=== PATIENT | female | born 1940 | race Caucasian/White ===

== ENCOUNTER 2019-10-05 20:49 | Emergency (ER) | payer MEDICARE, MEDICAID ==
[~2019-10-05] VITALS: Ht 152.4 cm; Wt 54.4 kg
--- NOTE | 2019-10-05 21:01 | NUR ---
ED Nurse Note: pt presents to ED after tripping and falling at home an hour [employer]. pt reports trying to get into a chair and falling. pt has a 2 cm lac above her L eyebrown and cannot move her L arm. pt reports 08/17 shoulder pain that radiates down the arm to the elbow. pt denies being on any blood thinners or ASA Addendum: 10/05/19 at 2158 by ADAN ED Nurse Note: pt does take ASA everyday
--- NOTE | 2019-10-05 21:07 | Emergency Room Report ---
History of Present Illness General Chief Complaint: Multiple Trauma/Fall Source: Patient Present Illness HPI Is a 78-year-old female with no significant past medical history. She presents with chief complaint of head injury and left shoulder pain. Onset was just prior to arrival. She got up from the chair and missed a step and fell forward. She hit her head. Sustained a laceration to the left eyebrow. Also landed on her left shoulder. Now she cannot move her left shoulder. It is painful. Pain is 9 out of 10. No nausea no vomiting. No fever chills. Denies any other injury. Did not pass out. Not on anticoagulation. Allergies: Coded Allergies: PENICILLINS (Unverified Allergy, Unknown, 10/05/19) Uncoded Allergies: PENICILLIN (Allergy, Unknown, 10/05/19) Patient History Past Medical History: see triage record, old chart reviewed Past Surgical History: none Pertinent Family History: none Social History: Denies: smoking Last Menstrual Period: NA Now: No : 3 Para: 3 Immunizations: other Reviewed Nursing Documentation: PMH: Agreed; PSxH: Agreed Nursing Documentation-PMH Past Medical History: No History, Except For Review of Systems Eye: Denies: eye pain, blurred vision ENT: Denies: ear pain, nose congestion, throat swelling Respiratory: Denies: cough, shortness of breath Cardiovascular: Denies: chest pain, palpitations Gastrointestinal: Denies: abdominal pain, diarrhea, nausea, vomiting Musculoskeletal: Reports: joint pain; Denies: back pain Skin: Denies: rash Neurological: Denies: headache, numbness Endocrine: Denies: increased thirst, increased urine Hematologic/Lymphatic: Denies: easy bruising All Other Systems: negative except mentioned in HPI Physical Exam Vital Signs Date Time Temp Pulse Resp B/P (MAP) Pulse Ox O2 Delivery O2 Flow Rate FiO2 10/05/19 20:53 98.2 82 19 178/84 (115) 98 Room Air Vitals with high blood pressure Sp02 EP Interpretation: reviewed, normal General Appearance: well appearing, no apparent distress, alert Head: normocephalic, other - 2cm laceration to the left lateral eyebrow. No foreign body. Eyes: bilateral eye PERRL, bilateral eye EOMI ENT: hearing grossly normal, normal pharynx Neck: full range of motion, supple, no meningismus Respiratory: chest non-tender, lungs clear, normal breath sounds Cardiovascular #1: regular rate, rhythm, no murmur Gastrointestinal: normal bowel sounds, non tender, no mass, no organomegaly, no bruit, non-distended Musculoskeletal: back normal, gait/station normal, other - Diffuse tenderness to the proximal left humerus/shoulder area. Sensation normal. Decreased range of motion secondary to pain. Psychiatric: mood/affect normal Procedures Splinting Splinting : Consent: Verbal Location: rt shoulder Pre-Made Type: shoulder immobilizer Pre-Proc Neuro Vasc Exam: normal Post-Proc Neuro Vasc Exam: normal Patient Tolerated: Well Complications: None Laceration/Wound Repair Laceration/Wound Repair : Consent: Verbal Wound Location: face Wound's Depth, Shape: linear Wound Length (cm): 2 Wound Explored: clean Irrigated w/ Saline (ccs): 500 Anesthesia: 1% Lidocaine Volume Anesthetic (ccs): 2 Wound Repaired With: sutures Suture Size/Type: 6:0, other - vicryl Number of Sutures: 5 Patient Tolerated: Well Complications: None Medical Decision Making Diagnostic Impression: Primary Impression: Head injury, acute Qualified Codes: S09.90XA - Unspecified injury of head, initial encounter Additional Impressions: Facial laceration Qualified Codes: S01.81XA - Laceration without foreign body of other part of head, initial encounter Fracture, humerus, great tuberosity Qualified Codes: S42.252A - Displaced fracture of greater tuberosity of left humerus, initial encounter for closed fracture ER Course Patient presents with a fall with head injury and avulsion fracture of the greater tuberosity of her left shoulder. No evidence of intracranial fracture or bleed. Will discharge home. Other X-Ray Diagnostic Results Other X-Ray Diagnostic Results : X-Ray ordered: Left shoulder x-rays # of Views/Limited Vs Complete: 3 View Indication: Pain EP Interpretation: Yes Interpretation: no dislocation, no soft tissue swelling, other - avulsion frx of greater tuberosity Impression: Other - avulsion frx of greater tuberosity Electronically Signed by: Josh Hitchcock MD CT/MRI/US Diagnostic Results CT/MRI/US Diagnostic Results : Imaging Test Ordered: CT head Impression Negative per radiologist Last Vital Signs Date Time Temp Pulse Resp B/P (MAP) Pulse Ox O2 Delivery O2 Flow Rate FiO2 10/05/19 20:53 98.2 82 19 178/84 (115) 98 Room Air Status: improved Disposition: HOME, SELF-CARE Condition: Stable Scripts Ibuprofen* (MOTRIN*) 600 Mg Tablet 600 MG ORAL THREE TIMES A DAY, #30 TAB 0 Refills Prov: Josh Hitchcock MD 10/05/19 Acetaminophen With Codeine (T#3) (TYLENOL #3 TAB*) Y Tab 1 TAB ORAL Q4H PRN for For Pain, #20 TAB Prov: Josh Hitchcock MD 10/05/19 Additional Instructions: Follow-up with your doctor in 7 days. You will need a referral to see orthopedic doctor. Return if worse. Josh Hitchcock MD Oct 05, 2019 21:07
[2019-10-05 21:10] VITALS: BP 178/84
[2019-10-05] MEDS ORDERED: HYDROcodone/Acetamin 5/325 tab ORAL ONE (21:15)
--- NOTE | 2019-10-05 21:50 | NUR ---
ED Nurse Note: ERMD at pt bedside performing lac repair. 5 sutures were placed over L eyebrow laceration. pt tolerated procedure well, area was irrigated and dressed. pt given copies of Xray imaging
--- NOTE | 2019-10-05 21:59 | Diagnostic Imaging Report ---
Indication: Headache. Head trauma Technique: Contiguous 5 mm thick transaxial imaging of the head obtained in a Siemens Sensation [address] scanner. Soft tissue and bone windows generated. Automatic Exposure Control was utilized. Total Dose length Product (DLP): 263.[address] Dose Index Volume (CTDIvol): 62.7 mGy Comparison: none Findings: There is mild prominence of the ventricles, basal cisterns, and cerebral sulci consistent with atrophy. Mild, nonspecific, white matter hypoattenuation is noted throughout the brain consistent with chronic small vessel disease. There is no midline shift, edema, acute hemorrhage, mass effect, or abnormal extra-axial fluid collections. Bones are unremarkable. Impression: No acute intracranial bleed, mass effect or edema. Mild atrophy of the brain. Nonspecific white matter hypoattenuation probably due to chronic small vessel disease. The CT scanner at [facility] is accredited by the [employer] and the scans are performed using dose optimization techniques as appropriate to a performed exam including Automatic Exposure control.
[2019-10-05] MEDS ORDERED: ACETAMINOPHEN-1 EAC1 ORAL (22:08)
[2019-10-05] MEDS ORDERED: IBUPROFEN600 MG ORAL (22:08)
[2019-10-05] MEDS ORDERED: Neosporin Oint Ud Pkt TOPIC ONE (22:15)
[2019-10-05 22:18] VITALS: BP 170/83
--- NOTE | 2019-10-05 22:18 | NUR ---
ER DISCHARGE NOTE: Patient is cleared to be discharged per ERMD, pt is aox4, on room air, with stable vital signs. pt and daughter dash given dc and prescription instructions, both were able to verbalize understanding. pt id band removed without complications. pt is able to ambulate with steady gait. pt took all belongings and was given copies of her XRay results.
--- NOTE | 2019-10-06 10:07 | Diagnostic Imaging Report ---
Indication: left shoulder pain Findings: 3 views of the left shoulder were obtained. There is an acute surgical neck fracture of the left humerus. No displacement demonstrated. Bones are osteopenic. Glenohumeral joint alignment is normal. IMPRESSION: Acute left humeral neck fracture
== END 2019-10-05 22:18 | disposition home or self-care (01) ==
LOC: EMR 21:29
DX: S01.112A Laceration without foreign body of left eyelid and periocular area, initial encounter (principal); S42.252A Displaced fracture of greater tuberosity of left humerus, initial encounter for closed fracture; S09.90XA Unspecified injury of head, initial encounter; W07.XXXA Fall from chair, initial encounter; Y93.9 Activity, unspecified; Y92.019 Unspecified place in single-family (private) house as the place of occurrence of the external cause; Z88.0 Allergy status to penicillin
CPT/HCPCS: 29105; 70450; 99284